=== PATIENT | female | born 1985 | race Native Hawaiian/Other Pacific Islander ===

== ENCOUNTER 2018-07-25 07:44 | Inpatient (IN) | payer BC ==
[2018-07-25] MEDS ORDERED: Lactated Ringer's 1,000 ML IV ONE (08:06)
--- NOTE | 2018-07-25 09:00 | OBHP ---
Datetime: 07/25/2018 08:56 IP Adm Impression: Term, intrauterine IP Admit Plan: Admit to unit Admit Comment, IP Provider: @ 38.5 wks GA c/o ctx eveyr 5 min /10 denie slof, vb, ctx, +FM. pt preort thick dicharge OB: x 1 FT 7lbs 1 ounce IMPORT/EXPORT ANALYST: dies PMH: Dneies PSH: dene FHX non contirioyr MEDS: PNV NKDA SH:X negaive etcoh/tobacc/bill A/P @ 38.5 wks GA iol for oligohydramnios admit to l+D npo, ivf admission labs conto berta oand efm anage cytooce Pelvic Type - PN: Adequate Extremities - PN: Normal Abdomen - PN: Normal Back - PN: Normal Breast - PN: Normal Lungs - PN: Normal Heart - PN: Normal Thyroid - PN: Normal Neurologic - PN: Normal HEENT - PN: Normal General - PN: Normal Presentation-Admit: Vertex FHR - Baseline A Provider: 145 Membranes, Provider: Intact Contraction Comments Provider: q 5 min Comments, ACOG Physical Exam: Bedside US vtx afti 4.7cm, Gestation - Est Wks by US: 38.5 Pool Provider: Negative Nitrazine Provider: Negative IP Hx Assessment: The History has been Reviewed and is Current EGA AdmitDate IP: 38.5 Vital Signs Provider: Reviewed; Within Normal Limits IP Chief Complaint: Uterine contractions NICHD Variability Prov Fetus A: Moderate 6-25bpm FHR Category Provider Fetus A: Category I NICHD Decel Fetus A IP Provider: None Dilatation, Provider: 2 Effacement, Provider: 50 Station, Provider: -3 Genitourinary Exam: Normal DTRs - PN: Normal
[2018-07-25 09:38] LABS: BASO % 0.3 % (0.0-2.0); EOS # 0.2 K/uL (0.0-0.7); EOS % 2.8 % (0.0-4.0); HEMOGLOBIN 10.9 g/dL (11.0-16.0); LYMPH # 1.6 K/uL (1.0-4.3); LYMPH % 18.3 % (20.0-40.0); MEAN CELL VOLUME 90.5 fL (81.0-99.0); MEAN CORPUSCULAR HEMOGLOBIN 30.8 pg (27.0-31.0); MEAN CORPUSCULAR HGB CONC 34.1 g/dL (33.0-37.0); MEAN PLATELET VOLUME 11.9 fL (7.2-11.7); MONO # 0.9 K/uL (0.0-0.8); MONO % 10.6 % (0.0-10.0); NRBC % 0.1 % (0.0-2.0); RBC 3.53 Mil/uL (3.80-5.20); WHITE BLOOD COUNT 8.8 K/uL (4.8-10.8)
[2018-07-25 09:42] LABS: SQUAMOUS EPITHIAL 4 /hpf (0-5); URINE BACTERIA OCC (<OCC); URINE BILIRUBIN NEGATIVE (NEGATIVE); URINE BLOOD NEGATIVE (NEGATIVE); URINE CLARITY Clear (Clear); URINE COLOR Straw (YELLOW); URINE GLUCOSE (UA) NORMAL (Normal); URINE LEUKOCYTE ESTERASE NEG Leu/uL (Negative); URINE PROTEIN NEGATIVE (NEGATIVE); URINE UROBILINOGEN NORMAL mg/dL (0.2-1.0)
[2018-07-25] MEDS ORDERED: Oxytocin 30 UNIT 30 UNITS/500 ML BAG IV SCH (12:45)
[2018-07-25] MEDS ORDERED: Oxytocin 30 UNIT 30 UNITS/500 ML BAG IV ONE (13:02)
[2018-07-25] MEDS ORDERED: Nalbuphine HCL 10 mg/ml Ampule IVP ONE (15:45)
[2018-07-25] MEDS ORDERED: DiphenhydrAMINE 50 mg/ml Inj IVP STA (15:45)
[2018-07-25] MEDS ORDERED: Nalbuphine HCL 10 mg/ml Ampule ONE (16:13)
[2018-07-25] MEDS ORDERED: DiphenhydrAMINE 50 mg/ml Inj ONE (16:15)
[2018-07-25 18:25] LABS: RAPID PLASMA REAGIN NONREACTIVE (NONREACTIVE)
[2018-07-25] MEDS ORDERED: Bupivacaine HCl/FentaNYL Cit 100 ML EPI ONE (21:54)
[2018-07-26] MEDS ORDERED: Benzocaine/Menthol 20%-0.5% Topical Spray (60 ml) TOP PRN (00:19)
[2018-07-26] MEDS ORDERED: Oxycodone/Acetaminophen 5/325 mg Tab PO PRN ×2 (00:19)
--- NOTE | 2018-07-26 00:35 | OBDS ---
MATERNAL INFORMATION Estimated Blood Loss (ml): 100 Provider Comments: pt was fully dilated and pushing. atrumatic, sponatneous delivery of head in [facility] [place] [place]. No nuchal cord noted. Atrauatmic, spontaneous delivery of anterior followed by posterior kamari ulder followed by delivery of the body. Both oral and nasal passages of the baby were bulb suctioned. umbilcal cord was clamped adn cut adn baby was handed to [facility] on abdomen with RN assistance. Cord blood and cord gases collectd and sent x 2. Spontaneous delivery of intact placenta with membranes. Fundus firm, good hemostasis. first degree perineal lacerationed noted adn repaired with 3-0 chromic. No complications live male apgars 9,9 ebl 100ml weight 7lbs no complications LABOR SUMMARY EDC: 08/03/2018 00:00 LABOR INFORMATION Onset of Labor: 07/25/2018 02:00 Cervical Ripening Agents: Cytotec @ (Annotations: 25mcg) Group B Beta Strep: Negative VAGINAL DELIVERY Laceration Extension: First Degree Laceration Type: Perineal BABY A INFORMATION Infant Delivery Date/Time: 07/26/2018 00:06 SHOULDER DYSTOCIA BABY A Infant Delivery Date/Time: 07/26/2018 00:06 PRESENTATION/POSITION BABY A Presentation: Cephalic IDENTIFICATION/MEDS BABY A ID Band Number: [id number] Sensor Number: [id number] WEIGHT/LENGTH BABY A Infant Birthweight (gms): 3190 Weight (lb): 7 Weight (oz): 0 Infant Length Inches: 20.00 Length cms: 50.8 CORD INFORMATION BABY A No. Cord Vessels: 3
[2018-07-26 08:33] LABS: BASO % 0.1 % (0.0-2.0); EOS # 0.1 K/uL (0.0-0.7); EOS % 0.8 % (0.0-4.0); HEMOGLOBIN 11.1 g/dL (11.0-16.0); LYMPH # 1.5 K/uL (1.0-4.3); MEAN CELL VOLUME 90.1 fL (81.0-99.0); MEAN CORPUSCULAR HEMOGLOBIN 31.1 pg (27.0-31.0); MEAN CORPUSCULAR HGB CONC 34.5 g/dL (33.0-37.0); MEAN PLATELET VOLUME 11.7 fL (7.2-11.7); MONO # 1.1 K/uL (0.0-0.8); MONO % 7.3 % (0.0-10.0); NEUT # 12.6 K/uL (1.8-7.0); NEUT % 81.8 % (50.0-75.0); RBC 3.57 Mil/uL (3.80-5.20); RED CELL DISTRIBUTION WIDTH 13.2 % (11.5-14.5)
[2018-07-26 08:36] LABS: WHITE BLOOD COUNT 15.4 K/uL (4.8-10.8)
[2018-07-26] MEDS: Multiple Vitamins Tab PO SCH (09:29)
[2018-07-26 16:07] VITALS: RESP 18; O2SAT 98
--- NOTE | 2018-07-27 04:19 | OBDCSUM ---
Datetime: 07/27/2018 04:16 Discharged to, Provider: Home Follow up at, Provider: Dr Lewis Disch Instr Activity: Normal activity Disch Instr Diet: Regular Discharge Instructions, Provider: Routine instructions given Discharge Diagnosis, Provider: Term Delivered Discharge Time: 07/27/2018 10:16 Follow up in weeks, Provider: 6 weeks Disch Referrals: None Contraception discussed, Prov: Yes Disch Activity Restrictions: No sexual activity; Nothing in vagina - [place], tampons, douche Discharge Comment, Provider: precauitn given Contraception after Delivery: Not Planning to Use
--- NOTE | 2018-07-27 04:19 | OBPPN ---
Datetime: 07/27/2018 04:15 PP Pain Prov: Within normal limits PP Nausea Prov: Denies PP Flatus Prov: Yes PP BM Prov: Yes PP Breasts Prov: Normal PP Heart Prov: Normal PP Lungs Prov: Normal PP Abdomen/Uterus Prov: Normal PP Lochia Prov: Normal PP Vulva/Perineum Prov: Normal PP CVA Tenderness Prov: Normal PP Extremities Prov: Normal PP C/S Incision Prov: Not Applicable PP Progress Prov: Normal PP Impression Prov: Normal progression PP Plan Prov: Continue present management; Discharge PP Progress Note Prov: pt seen adn examied and reprots pain rlq controlld with medicaion. pt ambulat ing, voiding, passing flatus, tolerated regular diet. pt denies any fever, chills, nause, vomiting cp , sob VSS PE GEN NAD AAO x 3 RESP: CTAB: CVS:RRR< +S1/S2 ABDS: soft, NT/ND, +BS, no gurding ,no rebound tendenress ,no rigidity, no uterine tenderness Fundus: firm, below level of umbiulcs VE: minimal lohcia, non foul smelling EXT; no calf tenderness, negative mandy's sign A/P s/p ppd #2 doign well am cbc dc home rto 6 week precuating iven Vital Signs Provider PP: Reviewed; Within Normal Limits
[2018-07-27 07:19] LABS: BASO % 0.4 % (0.0-2.0); EOS # 0.3 K/uL (0.0-0.7); HEMOGLOBIN 11.2 g/dL (11.0-16.0); LYMPH # 2.3 K/uL (1.0-4.3); MEAN CELL VOLUME 90.6 fL (81.0-99.0); MEAN CORPUSCULAR HEMOGLOBIN 31.6 pg (27.0-31.0); MEAN CORPUSCULAR HGB CONC 34.9 g/dL (33.0-37.0); MEAN PLATELET VOLUME 11.9 fL (7.2-11.7); MONO # 1.2 K/uL (0.0-0.8); MONO % 11.2 % (0.0-10.0); NEUT # 6.9 K/uL (1.8-7.0); NEUT % 64.4 % (50.0-75.0); RBC 3.54 Mil/uL (3.80-5.20); RED CELL DISTRIBUTION WIDTH 13.4 % (11.5-14.5); WHITE BLOOD COUNT 10.7 K/uL (4.8-10.8)
[2018-07-27] MEDS: Multiple Vitamins Tab PO SCH (09:17)
[2018-07-27] MEDS ORDERED: Influenza Vaccine 60 MCG/0.5 ML SYR (3 yr & up) IM ONE (14:49)
[2018-07-27 21:32] VITALS: BP 98/56; PULSE 79; TEMP 98
== END 2018-07-27 16:35 | disposition home or self-care (01) | DRG 807 ==
LOC: C.EROB 07:44 → C.4D 08:06 → C.4M 07-26 02:01
PROVIDERS: ADMIT Obstetrics & Gynecology; ATTEND Obstetrics & Gynecology
PROC: 10E0XZZ Delivery of Products of Conception, External Approach (ICD-10-PCS; principal; 2018-07-25)
PROC: 0HQ9XZZ Repair Perineum Skin, External Approach (ICD-10-PCS; 2018-07-25)
DX: O41.03X0 Oligohydramnios, third trimester, not applicable or unspecified (principal); Z37.0 Single live birth; O70.0 First degree perineal laceration during delivery; Z3A.38 38 weeks gestation of pregnancy